=== PATIENT | male | born 1980 | race Caucasian/White ===

== ENCOUNTER 2021-09-06 09:02 | Emergency (ER) | payer SELFPAY ==
[2021-09-06 09:08] VITALS: BP 201/102; PULSE 86; RESP 18; TEMP 36; O2SAT 99
--- NOTE | 2021-09-06 09:39 | PC.NURSE ---
Patient reported to this nurse he wished to leave at this time. patient alert and oriented. Ambulated self from ED. Nothing further to report.
== END 2021-09-06 09:39 | disposition left against medical advice (07) ==
DX: R10.30 Lower abdominal pain, unspecified (principal)
CPT/HCPCS: 99199

== ENCOUNTER 2022-07-14 09:34 | Observation (INO) | payer BC, SELFPAY ==
[2022-07-14] VITALS (16 sets, daily range): BP systolic 153–231; BP diastolic 81–121; PULSE 74–114; RESP 12–22; TEMP 36.1–37.1; O2SAT 97–100; BMI 34.2
--- NOTE | 2022-07-14 | ECG_ITS ---
Measurements Intervals [place] Rate: 65 P: 48 ID: [id number] QRS: -15 QRSD: 110 T: 170 QT: 428 QTc: 445 Interpretive Statements SINUS RHYTHM LEFT VENTRICULAR HYPERTROPHY AND ST-T CHANGE BASELINE ARTIFACT- I, II, III, AVR, AVL BORDERLINE ECG COMPARED TO ECG 07/14/2022 09:44:43 NO SIGNIFICANT CHANGES Electronically Signed On 07-18-2022 8:22:13 CDT by Enrique Dejesus D.O.
--- NOTE | ~2022-07-14 | US_ITS ---
EXAMINATION: US carotid duplex BI DATE: 07/14/2022 16:03 INDICATION: Syncope. TECHNIQUE: Grayscale, color Doppler, and pulsed Doppler images of the cervical carotid arteries were obtained. The degree of vessel stenosis is placed in one of the following categories: normal, <50%, 5 0-69%, >=70% but less than near-occlusion, near-occlusion, or total occlusion. Note that percent sten osis relative to normal distal artery lumen diameter is indirectly measured from velocity measurement s as described by Shankar, et al. Radiology 2003; 229:340-346. COMPARISON: None. FINDINGS: RIGHT: The right common carotid artery (CCA) peak systolic velocity (PSV) is 93 cm/s. The right internal car otid artery (ICA) PSV is 67 cm/s. The right ICA end-diastolic velocity (EDV) is 22 cm/s. The right IC A/CCA PSV ratio is 0.7. Grayscale and color Doppler images yield an estimate of 0% diameter reduction from plaque in the ICA. There is antegrade flow in the right vertebral artery. LEFT: The left CCA PSV is 85 cm/s. The left ICA PSV is 78 cm/s. The left ICA EDV is 24 cm/s. The left ICA/C CA PSV ratio is 0.9. Grayscale and color Doppler images yield an estimate of 0% diameter reduction fr om plaque in the ICA. There is antegrade flow in the left vertebral artery. IMPRESSION: 1. Normal internal carotid arteries. Reviewed, dictated and finalized at location A.
--- NOTE | ~2022-07-14 | CT_ITS ---
EXAMINATION: CT brain wo con DATE: 07/14/2022 10:50 INDICATION: Hypertension. Headaches. TECHNIQUE: Computed tomography (CT) of the head was performed without intravenous contrast. The dose- length product was 605.33 mGy-cm. COMPARISON: None FINDINGS: EXAMINATION: CT BRAIN W/O DATE: 07/14/2022 10:50 INDICATION: Hypertensive crisis. Headaches. TECHNIQUE: Computed tomography (CT) of the head was performed without intravenous contrast. The dose- length product was 605.33 mGy-cm. Automated exposure control and iterative reconstruction technique w ere employed. COMPARISON: No prior studies for comparison. FINDINGS: Normal brain parenchymal volume for age. Normal ramirez-white differentiation. No acute intrac ranial hemorrhage, infarction, mass or mass effect. No ventriculomegaly or midline shift. Midline sagittal images demonstrate a normal corpus callosum, c raniovertebral junction and sella turcica. Basilar cisterns are patent. Paranasal sinuses and mastoids are pneumatized. No depressed skull fractures. IMPRESSION: 1. No acute intracranial abnormality. IMPRESSION: 1. Reviewed, dictated and finalized at location B. IMPRESSION: 1. No acute intracranial abnormality. IMPRESSION: 1.
--- NOTE | ~2022-07-14 | XR_ITS ---
EXAMINATION: XR chest 2V DATE: 07/14/2022 10:32 INDICATION: Hypertension TECHNIQUE: PA and lateral views of the chest are obtained. COMPARISON: None available FINDINGS: The lungs are free of acute opacities. No pleural effusion or pneumothorax. The cardiomedia stinal silhouette is normal. There is mild thoracic spondylosis. IMPRESSION: 1. No acute cardiopulmonary abnormality. Reviewed, dictated and finalized at location A.
--- NOTE | 2022-07-14 09:39 | ECG_ITS ---
Measurements Intervals [place] Rate: 70 P: 48 UT: 177 QRS: -16 QRSD: 105 T: 154 QT: 403 QTc: 437 Interpretive Statements SINUS RHYTHM LEFT VENTRICULAR HYPERTROPHY AND ST-T CHANGE, CONSIDER MYOCARDIAL ISCHEMIA ABNORMAL ECG NO PREVIOUS ECG AVAILABLE FOR COMPARISON Electronically Signed On 07-14-2022 16:45:01 CDT by Mac Hay M.D.
[2022-07-14 09:57] LABS: Basophils Absolute Auto 0.1 K/mm3 (0.0-0.1); Basophils Percent Auto 0.9 % (0.2-1.2); Eosinophils Absolute Auto 0.3 K/mm3 (0-0.3); Eosinophils Percent Auto 3.7 % (0-4.4); Hematocrit 41.8 % (42.0-52.0); Hemoglobin 13.3 g/dL (14.0-18.0); Immature Granulocyte Absolute 0.02 K/mm3 (0.00-0.031); Immature Granulocyte Percent A 0.3 % (0-0.5); Lymphocytes Percent Auto 17.6 % (18.3-44.2); Mean Corpuscular HGB Conc 31.8 g/dl (32-36); Mean Corpuscular Hemoglobin 26.2 pg (26-34); Mean Corpuscular Volume 82.3 fl (80-100); Mean Platelet Volume 11.9 fl (7.4-10.4); Monocytes Absolute Auto 0.6 K/mm3 (0.1-0.6); Monocytes Percent Auto 8.1 % (2.6-8.5); Neutrophils Absolute Auto 5.1 K/mm3 (1.3-6.7); Neutrophils Percent Auto 69.4 % (45.5-73.1); Platelet Count Result 250 k/mm3 (150-375); Red Blood Count 5.08 M/mm3 (4.6-6.20); Red Cell Distribution Width 13.8 % (11.5-14.5); White Blood Count 7.4 K/mm3 (4.5-10.0)
[2022-07-14 10:06] LABS: Alanine Aminotransferase 19 U/L (6-50); Albumin Level 4.9 g/dL (3.5-5.1); Alkaline Phosphatase 101 U/L (38-126); Anion Gap 14 mmol/L (8-16); Aspartate Amino Transferase 27 U/L (17-59); Bilirubin,Total 0.5 mg/dL (0.2-1.3); Blood Urea Nitrogen 17 mg/dL (9-20); Calcium 8.8 mg/dL (8.4-10.2); Carbon Dioxide 28 mmol/L (22-30); Chloride 100 mmol/L (98-107); Estimated CRCL calculation 78 ml/min; Estimated Glomerular Filt Rate > 60; Glucose 110 mg/dL (65-110); Lipase 75 U/L (23-300); Potassium 3.2 mmol/L (3.4-5.0); Sodium 142 mmol/L (137-145)
[2022-07-14 10:11] LABS: INR 0.9; Prothrombin Time 12.2 Seconds (11.1-14.7)
[2022-07-14 10:12] LABS: Partial Thromboplastin Time 36.9 SECONDS (22.3-36.8)
[2022-07-14 10:26] LABS: Troponin I 0.042 ng/mL (0.000-0.034)
[2022-07-14] MEDS: hydrALAZINE HCL 20 MG/ML VIAL IV PUSH (10:38)
--- NOTE | 2022-07-14 10:48 | ED.RECABL ---
HPI - Recheck/Abnormal Lab/Rx General Chief Complaint: Recheck/Abnormal Lab/Rx Stated Complaint: abnormal EKG Time Seen by Provider: 07/14/22 10:23 History of Present Illness HPI narrative: 42-year-old male with a history of hypertension presents emergency room for evaluation of elevated blood pressures. Patient states that he was once being managed with lisinopril hydrochlorothiazide for his hypertension. Patient states that he moved, and did not seek medical care from a primary care physician for quite some time. States that he went to the dentist for routine cleaning last week, was found to have significantly elevated blood pressure. States that he establish care with a PCP today and was told to come directly to the emergency room for blood pressures of 230/120. Patient denies any headache, chest pain, shortness of breath, visual changes or nocturia. 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 Related Data Allergies Allergy/AdvReac Type Severity Reaction Status Date / Time No Known Allergies Allergy Unverified 07/14/22 08:18 Review of Systems Review of Systems: CONSTITUTIONAL: Denies fever, chills, or sweats. EYES: Denies visual changes, redness, or discharge. ENT: Denies rhinorrhea, congestion, sore throat, or otalgia. CARDIOVASCULAR: Denies chest pain, palpitations, or edema. RESPIRATORY: Denies cough or dyspnea. GASTROINTESTINAL: Denies abdominal pain, nausea, vomiting, or diarrhea. GENITOURINARY: Denies dysuria or hematuria. SKIN: Denies rash or itching. MUSCULOSKELETAL: Denies back pain, joint pain, or myalgia. NEUROLOGIC: Denies headache, numbness, dizziness, or weakness. PSYCHIATRIC: Denies anxiety or depression. [facility] Past Medical History Medical History Xsitk-Lgbmtslgq-Grtjh (WPW) syndrome (~1991) Family History Family History Father Cancer Hypertension Mother Cancer Sibling Depression Anxiety Grandparent Cerebrovascular accident Social History Social History Smoking status: Never smoker Alcohol intake: current Substance use type: does not use Exam Narrative: GENERAL: Well-appearing, well-nourished, no physical limitations, and in no acute distress. HEAD: Normocephalic, atraumatic. EYES: Conjunctivae normal, PERRLA and EOMI. NECK: Supple. No carotid bruits or JVD CHEST: Clear to auscultation. No respiratory distress. No wheezes rales or rhonchi. HEART: Regular rate and rhythm. No murmur heard. Normal peripheral pulses. ABDOMEN: Soft, nontender, nondistended, normal active bowel sounds. BACK: No CVA tenderness; No cervical/thoracic/lumbar tenderness, step-offs, bony abnormality; FROM EXTREMITIES: Normal range of motion. No edema. No clubbing or cyanosis SKIN: Warm, dry, no rash. No noted wounds NEURO: No focal deficits. Alert and oriented x3. MAEW. CN's II-XI intact bilaterally, normal gait PSYCH: Cooperative. Normal mood and affect. Course Vital Signs Vital signs: Vital Signs Temperature 36.6 C 07/14/22 09:41 Pulse Rate 75 07/14/22 09:41 Respiratory Rate 12 07/14/22 09:41 Blood Pressure 231/121 H 07/14/22 09:41 Pulse Oximetry 100 07/14/22 09:41 Oxygen Delivery Room Air 07/14/22 09:41 Temperature 36.6 C 07/14/22 09:41 Pulse Rate 76 07/14/22 11:30 Respiratory Rate 18 07/14/22 11:30 Blood Pressure 159/81 H 07/14/22 11:30 Pulse Oximetry 97 07/14/22 11:30 Oxygen Delivery Room Air 07/14/22 09:41 MDM - Recheck/Abnormal Lab/Rx MDM Narrative Medical decision making narrative: Discussed case with Dr. Mahajan. He is requesting patient be admitted to IMU status. 1115: Patient overheard saying that he felt like he was going to pass out. I was at the bedside when patient had a syncopal episode that lasted approximately 2 seconds. Patient br
--- NOTE | 2022-07-14 11:40 | PC.NURSE ---
pt's heart rate decreased into the 30's. when walking into room pt had had a syncopal episode lasting a few seconds. when pt regained consciousness he stated he felt dizzy right before he passed out. pt denies any chest pain or shortness of breath. pt's HR increased back into the 60's. repeat EKG was obtained and shown to Dr. Jacob.
[2022-07-14 11:56] LABS: SARS-CoV-2 RNA PCR Negative
--- NOTE | 2022-07-14 12:43 | ADMGEN ---
This patient, Brijesh Morejon, was admitted to IMU Room 232-01. Patient/family oriented to hospital policies and general routines including ID bracelet, bed and alarms, visiting hours, pain management, procedures, bathroom and other care routines, personal items, smoking policy, room service/diet, and visiting hours. Information on how to activate the Rapid Response Team has been discussed. Patient/Family are encouraged to report perceived risks to care and to ask questions if they do not understand what they are told or what they should do.
--- NOTE | 2022-07-14 14:30 | PM.IMHP ---
H&P: HPI History of Present Illness Date/Time: 07/14/22 14:30 Chief Complaint: Hypertension and abnormal EKG Narrative: This is a 42-year-old male patient who has a history Cvoia-Jfrdhyglw-Elkwf with in the bleach in the past. He also has a history of hypertension that was once managed with lisinopril and hydrochlorothiazide however the patient had moved and has not taken his blood pressure medicine in quite some time approximately 1-2 years. The patient went to the dentist for routine cleaning any was found to be hypertensive there. The dentist told him to come directly to the emergency room where his blood pressure was found to be 174/112 and came up to 231/121. His blood pressure is now come down to 153/83. The patient was given hydralazine. It was reported that the patient had a syncopal episode and has heart rate came down in the 20s. Patient was then given atropine. His troponin was found to be 0.042 most likely from hypertension. The patient has no complaints of any chest pain. His negative for COVID. His EKG was read as sinus rhythm left ventricular hypertrophy and ST changes. The patient had been prescribed aspirin losartan and hydrochlorothiazide by his primary care doctor. The patient had CT in the emergency room that shows no acute intracranial abnormality. Chest x-ray was read as no acute cardiopulmonary abnormality. The patient had no complaints of being short of breath her having any headache, or dizziness. Initially the patient was going to be admitted to inpatient status and was changed to observation status on the date of service of 07/14/2022. Review of Systems Review of Systems: See HPI All systems reviewed & are unremarkable except as noted in HPI and below Constitutional: Constitutional: Reports as per HPI and Reports no additional constitutional complaints Eyes: Eyes: Reports as per HPI and Reports no additional eye complaints ENT: Reports system reviewed and no additional complaints, except as documented and Reports Normal hearing present Cardiovascular: Cardiovascular: Reports no additional cardiovascular complaints Respiratory: Respiratory: Reports no additional respiratory complaints and Reports no additional respiratory complaints Gastrointestinal: Gastrointestinal: Reports as per HPI and Reports no additional gastrointestinal complaints Musculoskeletal: Musculoskeletal: Reports no additional musculoskeletal complaints Integumentary/Breasts: Skin/Breast: Reports system reviewed and no additional complaints, except as docu and Reports as per HPI Neurologic: Reports system reviewed and no additional complaints, except as documented, Reports as per HPI and Reports Normal hearing present Psychiatric: Psychiatric: Reports no additional psychiatric complaints and Reports as per HPI Endocrine: Endocrine: Reports no additional endocrine complaints Hematologic/Lymphatic: Hematologic/Lymphatic: Reports no additional hematologic/lymphatic complaints Allergic/Immunologic: Allergic/Immunologic: Reports no additional allergic/immunologic complaints PMFSH Past Medical History Medical History Hypertension Ungss-Oonggatsq-Oqkny (WPW) syndrome (~1991) Surgical History Surgical History S/P ablation operation for arrhythmia [place] teeth extracted Family History Family History Father Cancer Hypertension Mother Cancer Sibling Depression Anxiety Grandparent Cerebrovascular accident Social History Social History (Updated 07/14/22 @ 14:42 by Roopa Quiles NP) Social History: 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 Does not use any alcohol marijuana or illicit drugs. He has 3
--- NOTE | 2022-07-14 15:16 | PM.CNCAR ---
Assessment and Plan Assessment and plan (1) Syncope: Code(s): R55 - Syncope and collapse Status: Acute Assessment and Plan: At this time we do not have any evidence of significant arrhythmias. Continue to monitor patient on telemetry. Could have possibly been a vasovagal episode. Patient did have a significant blood pressure drop with hydralazine from 230 systolic to 150 systolics, this could possibly attributed to episode. An echocardiogram has already been ordered, we will follow-up on the results of this (2) Hypertensive crisis: Code(s): I16.9 - Hypertensive crisis, unspecified Status: Acute Assessment and Plan: Blood pressure control as per hospitalist (3) Elevated troponin: Code(s): R77.8 - Other specified abnormalities of plasma proteins Status: Acute Assessment and Plan: Troponin is mildly elevated at 0.042, ECG with sinus rhythm with LVH with secondary repolarization changes. No ischemic changes. Suspect secondary to hypertensive crisis. History of Present Illness History of Present Illness Consult date/time: 07/14/22 15:16 Requesting physician: Mp Haywood APRN Consult reason: Other (syncope) Reason For Visit: HTN Crisis Narrative: Patient is a 42-year-old male with a history of WPW status post ablation 1991 and hypertension not on home medications who presented to the emergency department with hypertensive crisis. Patient states that he was at his dentist's office on Sunday and they had noticed elevated blood pressures recommended follow-up with his primary care. Patient was seen at his primary care office today and they had noticed blood pressures almost in the 200 systolics, and therefore referred patient to the emergency department for further management. While in the ED, patient had a blood pressure of 231/121, and then he was given hydralazine which dropped his blood pressure to 159. While in the ED patient had a syncopal episode. Patient states that he felt chills and then got lightheaded, and then passed out briefly. Per ED report he was bradycardic, however we do not have any of the telemetry strips. Upon regaining consciousness, patient states he felt a little groggy but otherwise is okay. EKG shows sinus rhythm with LVH with secondary repolarization changes. No acute ischemic changes. At this time have no evidence of significant arrhythmias. WPW ablation was done in 1991. Patient states that he had chest pain and episode of syncope prior to ablation, however he has not had any issues with that since, and he has not passed out until today. Patient denies any chest pain today. Review of Systems Review of Systems: 12-point ROS obtained. 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 Does not use any alcohol marijuana or illicit drugs. He has 3 children of his own. Code status full code Smoking status: Never smoker Alcohol intake: never Substance use: never Substance use type: does not use Has the Lack of Transportation Kept You From Medical Appointments or From Getting Medications?: No Within the Past 12 Months, Were You Worried Whether Your Food Would Run Ou
[2022-07-14 16:21] LABS: Troponin I 0.032 ng/mL (0.000-0.034)
[2022-07-14] MEDS: hydroCHLOROthiazide 12.5 MG CAPSULE PO (17:20)
[2022-07-14] MEDS: POTASSIUM CHLORIDE 20 MEQ TABLET PO (17:20)
[2022-07-14] MEDS: LOSARTAN POTASSIUM 50 MG TABLET PO (17:21)
[2022-07-14 18:17] LABS: Troponin I 0.033 ng/mL (0.000-0.034)
[2022-07-14] MEDS: hydrALAZINE HCL 20 MG/ML VIAL 10 MG IV PUSH (18:52)
[2022-07-15] VITALS (13 sets, daily range): BP systolic 170–217; BP diastolic 78–103; PULSE 88–108; RESP 16–18; TEMP 36.4–36.9; O2SAT 98–100
--- NOTE | 2022-07-15 | ECHO_ITS ---
Patient Info Name: Brijesh Morejon Age: 42 years : 1980 Gender: Male Ht: 68 in Wt: 222 lbs BSA: 2.23 m2 HR: 99 bpm BP: 186 / 78 mmHg Heart Rhythm: Sinus Rhythm Technical Quality: Fair Exam Date: 07/15/2022 10:36 AM Exam Location: [facility] Pulmonary Patient Status: Inpatient Admit Date: 07/14/2022 Staff Ordering Physician: Roopa Quiles NP Creative Services Producer: Lydia Armendariz RDCS Attending Provider: Joselin Mahajan MD Referring Physician: Kb DAO; Exam Type: CA echo dop color flow w con Study Info Indications I11.9 - Hypertensive heart disease without heart failure Complete two-dimensional, color flow and Doppler transthoracic echocardiogram is performed with contrast to opacify the left ventricle and to improve the deliniation of the left ventricle endocardial borders. Contrast/Agitated Saline Contrast/Ag. Saline: Definity Amount: 4.00 ml Administered By: Lydia Armendariz [facility] Summary 1. Left ventricular systolic function is normal, estimated at 60-65%. 2. There is moderately increased left ventricular wall thickness. 3. The left ventricular diastolic function is grade I diastolic dysfunction. 4. Right ventricular systolic function is normal. 5. There is mild tricuspid valve regurgitation. Left Ventricle Left ventricular chamber dimension is normal. Left ventricular systolic function is normal, estimated at 60-65%. There is moderately increased left ventricular wall thickness. The left ventricular diastolic function is grade I diastolic dysfunction. Right Ventricle Right ventricular chamber dimension is normal. Right ventricular systolic function is normal. Left Atria Left atrial chamber dimension is normal. Right Atria Right atrial chamber dimension is normal. Atrial Septum Intact interatrial septum visualized by color flow imaging. Aortic Valve The aortic valve is not well visualized. There is no aortic valve stenosis. There is no aortic valve regurgitation. Pulmonic Valve The pulmonic valve is not well visualized. Mitral Valve The mitral valve has normal leaflets. There is no mitral valve stenosis. There is no mitral valve regurgitation. Tricuspid Valve The tricuspid valve leaflets are normal. There is mild tricuspid valve regurgitation. Pericardium/Pleural There is no pericardial effusion. Inferior Vena Cava Normal inferior vena cava with >50% collapse upon inspiration consistent with normal right atrial pressure.. Left Ventricular Outflow Tract Name Value Normal LVOT 2D LVOT Diameter 2.35 cm LVOT Doppler LVOT Peak Gradient 6 mmHg LVOT Mean Gradient 3 mmHg LVOT VTI 21.30 cm LVOT VTI/AV VTI Ratio 0.57 LVOT Stroke Volume 92.41 ml LVOT CO 9.25 l/min LVOT CI 4.32 L/min/m2 Pulmonic Valve Name
[2022-07-15] MEDS: hydrALAZINE HCL 20 MG/ML VIAL 10 MG IV PUSH (05:03)
[2022-07-15 05:04] LABS: Hematocrit 41.1 % (42.0-52.0); Hemoglobin 13.5 g/dL (14.0-18.0); Mean Corpuscular HGB Conc 32.8 g/dl (32-36); Mean Corpuscular Volume 79.2 fl (80-100); Mean Platelet Volume 12.7 fl (7.4-10.4); Platelet Count Result 175 k/mm3 (150-375); Red Blood Count 5.19 M/mm3 (4.6-6.20); Red Cell Distribution Width 13.9 % (11.5-14.5); White Blood Count 17.2 K/mm3 (4.5-10.0)
[2022-07-15 05:10] LABS: Alanine Aminotransferase 19 U/L (6-50); Albumin Level 4.6 g/dL (3.5-5.1); Alkaline Phosphatase 103 U/L (38-126); Anion Gap 14 mmol/L (8-16); Aspartate Amino Transferase 34 U/L (17-59); Bilirubin,Total 0.7 mg/dL (0.2-1.3); Blood Urea Nitrogen 18 mg/dL (9-20); Calcium 8.9 mg/dL (8.4-10.2); Carbon Dioxide 29 mmol/L (22-30); Chloride 98 mmol/L (98-107); Estimated CRCL calculation 66 ml/min; Estimated Glomerular Filt Rate 52; Glucose 118 mg/dL (65-110); Magnesium 2.2 mg/dL (1.6-2.3); Potassium 3.6 mmol/L (3.4-5.0); Sodium 141 mmol/L (137-145)
[2022-07-15] MEDS: ASPIRIN 81 MG ENTERIC TABLET PO (09:05)
[2022-07-15] MEDS: hydroCHLOROthiazide 12.5 MG CAPSULE PO (09:05)
[2022-07-15] MEDS: ENOXAPARIN 40 MG/0.4 ML SYRINGE SUB-Q (09:06)
[2022-07-15] MEDS: LOSARTAN POTASSIUM 50 MG TABLET PO (09:06)
--- NOTE | 2022-07-15 09:06 | PM.IMPN ---
Progress Note: A&P Assessment and Plan (1) Syncope: Code(s): R55 - Syncope and collapse Status: Acute Assessment and Plan: -this apparently happened in the emergency room. Is reported that his heart rate dropped a 20 after he received hydralazine however the side effects of hydralazine is usually tachycardia. Perhaps this was a vagal response. The patient stated that he has not had a syncopal event in the past. --echo has been ordered and will check his carotids. (2) Hypertensive crisis: Code(s): I16.9 - Hypertensive crisis, unspecified Status: Acute Assessment and Plan: -the patient has p.r.n. hydralazine and he had a prescription for losartan with hydrochlorothiazide that his primary care doctor gave him after discussing this with the patient he is agreeable to take these medications. (3) Elevated troponin: Code(s): R77.8 - Other specified abnormalities of plasma proteins Status: Acute Assessment and Plan: -could be related to his hypertensive crisis. Continue to trend. The patient has no complaints of any chest pain or chest pressure. Plan The patient's potassium slightly low so I did replace that today. However the losartan can cause hyperkalemia. The patient will need to have his BMP checked in about 1 week. Subjective Date/time seen: 07/15/22 09:06 Objective Data Vital Signs Vital Signs: Vital Signs - 24 hr 07/14/22 09:41 07/14/22 10:24 07/14/22 10:25 Temperature 97.8 F Pulse Rate 75 79 Respiratory Rate 12 18 18 Blood Pressure 231/121 H 217/114 H Pulse Oximetry 100 99 99 Oxygen Delivery Room Air 07/14/22 11:30 07/14/22 12:10 07/14/22 16:00 Temperature 97 F L Pulse Rate 76 74 78 Respiratory Rate 18 22 H 14 Blood Pressure 159/81 H 153/83 H 197/100 H Pulse Oximetry 97 100 100 Oxygen Delivery 07/14/22 16:00 07/14/22 17:10 07/14/22 17:11 Temperature Pulse Rate Respiratory Rate Blood Pressure 197/100 H 198/97 H 184/104 H Pulse Oximetry Oxygen Delivery 07/14/22 14:00 07/14/22 16:00 07/14/22 18:00 Temperature Pulse Rate 92 84 95 Respiratory Rate Blood Pressure Pulse Oximetry Oxygen Delivery 07/14/22 18:30 07/14/22 20:00 07/14/22 20:00 Temperature 98.7 F Pulse Rate 107 H Respiratory Rate 18 Blood Pressure 213/97 H 200/89 H 200/89 H Pulse Oximetry 99 Oxygen Delivery 07/14/22 20:37 07/14/22 20:37 07/14/22 20:00 Temperature Pulse Rate 107 H Respiratory Rate 18 Blood Pressure 220/112 H 159/103 H Pulse Oximetry 99 Oxygen Delivery Room Air 07/14/22 20:00 07/14/22 22:00 07/14/22 23:56 Temperature 97.6 F Pulse Rate 106 H 109 H 114 H Respiratory Rate 16 Blood Pressure 175/107 H Pulse Oximetry 98 Oxygen Delivery 07/14/22 23:41 07/15/22 00:00 07/15/22 01:46 Temperature Pulse Rate 114 H 108 H 97 Respiratory Rate 16 Blood Pressure Pulse Oximetry 98 Oxygen Delivery Room Air 07/15/22 04:00 07/15/22 04:00 07/15/22 03:59 Temperature 97.6 F Pulse Rate 90 88 88 Respiratory Rate 18 18 Blood Pressure 186/78 H Pulse Oximetry 98 98 Oxygen Delivery Room Air 07/15/22 05:33 07/15/22 08:00 07/15/22 08:00 Temperature 97.7 F Pulse Rate 98 96 Respiratory Rate 16 Blood Pressure 206/96 H 206/96 H Pulse Oximetry 100 Oxygen Delivery 07/15/22 08:34 07/15/22 08:35 07/15/22 08:35 Temperature Pulse Rate Respiratory Rate Blood Pressure 195/95 H 202/103 H 217/100 H Pulse Oximetry Oxygen Delivery Intake/Output Intake/Output: Intake & Output 07/12/22 07/13/22 07/14/22 07/15/22 23:59 23:59 23:59 23:59 Intake Total 240 450 Output Total 4080 740 Balance -9762 -290 Meds/Results Medications: Active Medications Generic Name Dose Route Start Last Admin Trade Name Jassonq PRN Reason Stop Dose Admin Aspirin 81 mg 07/15/22 09:00 Aspirin 81 Mg Enteric Tablet PO D
[2022-07-15] MEDS: PERFLUTREN LIPID MICROSPHERES 1.5 ML VIAL DILUTED TO 10 ML TOTAL VOLUME IV PUSH (11:00)
[2022-07-15] MEDS: cloNIDine HCL 0.1 MG TABLET PO (11:11)
--- NOTE | 2022-07-15 11:21 | PM.PNCARD ---
Progress Note: A&P Assessment and Plan (1) Syncope: Code(s): R55 - Syncope and collapse Status: Acute Assessment and Plan: At this time we do not have any evidence of significant arrhythmias.? Could have possibly been a vasovagal episode.? Patient did have a significant blood pressure drop with hydralazine from 230 systolic to 150 systolics, this could possibly attributed to episode. An echocardiogram has already been ordered, we will follow-up on the results of this (2) Hypertension: Code(s): I10 - Essential (primary) hypertension Status: Acute Assessment and Plan: Blood pressure control as per hospitalist (3) Elevated troponin: Code(s): R77.8 - Other specified abnormalities of plasma proteins Status: Acute Assessment and Plan: Troponin is mildly elevated at 0.042 with repeat levels negative, ECG with sinus rhythm with LVH with secondary repolarization changes.? No ischemic changes.? Suspect secondary to hypertensive crisis. Time Spent With Patient Time with patient: 15 - 25 minutes Subjective Date/time seen: 07/15/22 11:21 Interval history: Reason for visit: Syncope No acute events overnight. TTE to be done this AM. Tele with occasional sinus tach overnight but no arrhythmias, bradycardia or other significant findings. Review of Systems Review of Systems: 8-point ROS obtained. Negative, unless stated in HPI. Exam Const: General: comfortable and no acute distress HENMT: Mouth: Yes moist mucous membranes Eyes: General: appearance normal, both eyes and all related structures Neck: Neck: supple and no JVD Resp: Effort & Inspection: normal respiratory effort Cardio: Rate: regular rate Rhythm: regular rhythm Heart sounds: no murmurs GI: GI Palp: Yes Soft to palpation and No Tenderness to palpation present (GI) Skin: General skin exam: normal color Neuro: Speech: normal speech Extrem: General: no edema Psych: Mental Status: mental status grossly normal Objective Data Vital Signs Vital Signs: Vital Signs - 24 hr 07/14/22 11:30 07/14/22 12:10 07/14/22 16:00 Temperature 36.1 C L Pulse Rate 76 74 78 Respiratory Rate 18 22 H 14 Blood Pressure 159/81 H 153/83 H 197/100 H Pulse Oximetry 97 100 100 Oxygen Delivery 07/14/22 16:00 07/14/22 17:10 07/14/22 17:11 Temperature Pulse Rate Respiratory Rate Blood Pressure 197/100 H 198/97 H 184/104 H Pulse Oximetry Oxygen Delivery 07/14/22 14:00 07/14/22 16:00 07/14/22 18:00 Temperature Pulse Rate 92 84 95 Respiratory Rate Blood Pressure Pulse Oximetry Oxygen Delivery 07/14/22 18:30 07/14/22 20:00 07/14/22 20:00 Temperature 37.1 C Pulse Rate 107 H Respiratory Rate 18 Blood Pressure 213/97 H 200/89 H 200/89 H Pulse Oximetry 99 Oxygen Delivery 07/14/22 20:37 07/14/22 20:37 07/14/22 20:00 Temperature Pulse Rate 107 H Respiratory Rate 18 Blood Pressure 220/112 H 159/103 H Pulse Oximetry 99 Oxygen Delivery Room Air 07/14/22 20:00 07/14/22 22:00 07/14/22 23:56 Temperature 36.4 C Pulse Rate 106 H 109 H 114 H Respiratory Rate 16 Blood Pressure 175/107 H Pulse Oximetry 98 Oxygen Delivery 07/14/22 23:41 07/15/22 00:00 07/15/22 01:46 Temperature Pulse Rate 114 H 108 H 97 Respiratory Rate 16 Blood Pressure Pulse Oximetry 98 Oxygen Delivery Room Air 07/15/22 04:00 07/15/22 04:00 07/15/22 03:59 Temperature 36.4 C Pulse Rate 90 88 88 Respiratory Rate 18 18 Blood Pressure 186/78 H Pulse Oximetry 98 98 Oxygen Delivery Room Air 07/15/22 05:33 07/15/22 08:00 07/15/22 08:00 Temperature 36.5 C Pulse Rate 98 96 Respiratory Rate 16 Blood Pressure 206/96 H 206/96 H Pulse Oximetry 100 Oxygen Delivery 07/15/22 08:34 07/15/22 08:35 07/15/22 08:35 Temperature Pulse Rate Respiratory Rate Blood Pressure 195/95 H 202/103 H 217/100 H Pulse Oximetr
--- NOTE | 2022-07-15 13:52 | PM.DS ---
DS: Admitting Diagnosis Discharge Date July 15, 2022 Admitting Diagnosis Elevated blood pressure DS: Discharge Diagnosis Discharge Diagnosis (1) Syncope: Code(s): R55 - Syncope and collapse Status: Acute Assessment and Plan: -this apparently happened in the emergency room. Is reported that his heart rate dropped a 20 after he received hydralazine however the side effects of hydralazine is usually tachycardia. Perhaps this was a vagal response. The patient stated that he has not had a syncopal event in the past. --echo has been ordered and will check his carotids. (2) Hypertensive crisis: Code(s): I16.9 - Hypertensive crisis, unspecified Status: Acute Assessment and Plan: -the patient has p.r.n. hydralazine and he had a prescription for losartan with hydrochlorothiazide that his primary care doctor gave him after discussing this with the patient he is agreeable to take these medications. (3) Elevated troponin: Code(s): R77.8 - Other specified abnormalities of plasma proteins Status: Acute Assessment and Plan: -could be related to his hypertensive crisis. Continue to trend. The patient has no complaints of any chest pain or chest pressure. Plan The patient's potassium slightly low so I did replace that today. However the losartan can cause hyperkalemia. The patient will need to have his BMP checked in about 1 week. DS: Summary Hospital Course Hospital Course: 42-year-old male patient who has a history Kcghg-Aecdhrhlq-Blihs with in the bleach in the past.? He also has a history of hypertension that was once managed with lisinopril and hydrochlorothiazide however the patient had moved and has not taken his blood pressure medicine in quite some time approximately 1-2 years.? The patient went to the dentist for routine cleaning any was found to be hypertensive there.? The dentist told him to come directly to the emergency room where his blood pressure was found to be 174/112 and came up to 231/121.? His blood pressure is now come down to 153/83.? The patient was given hydralazine.? It was reported that the patient had a syncopal episode and has heart rate came down in the 20s.? Patient was then given atropine.? His troponin was found to be 0.042 most likely from hypertension.? The patient has no complaints of any chest pain.? His negative for COVID.? His EKG was read as sinus rhythm left ventricular hypertrophy and ST changes.? The patient had been prescribed aspirin losartan and hydrochlorothiazide by his primary care doctor.? The patient had CT in the emergency room that shows no acute intracranial abnormality.? Chest x-ray was read as no acute cardiopulmonary abnormality.? The patient had no complaints of being short of breath her having any headache, or dizziness. All symptoms resolved. Cardiology was consulted and ordered an echo. Echo showed an EF of 60-65% with grade 1 diastolic dysfunction, no significant valvular abnormalities and no pulmonary hypertension noted. Elevated troponin was thought to be secondary to hypertensive urgency. The patient was started on clonidine for better blood pressure control and discharged in good condition with close outpatient follow-up and management. Time Spent with Patient Time attestation: Total time spent providing and/or coordinating discharge services: DS: Data Data Completed and Pending Labs on day of discharge: Labs from last 24 hours 07/15/22 07/15/22 07/15/22 04:48 04:48 04:48 WBC RBC Hgb Hct MCV MCH MCHC RDW Plt Count MPV Sodium 141 Potassium 3.6 Chloride 98 Carbon Dioxide 29 Anion Gap 14 BUN 18 Creatinine 1.50 H Estim Creat Clear Calc 66 Estimated GFR 52 L Glucose 118 H Calcium 8.9 Magnesium 2.2 Total Bilirubin 0.7 AST 34 ALT 19 Alkaline Phosphatase 103 Troponin I Total Protein 8.0 Albumin 4.6 TSH (Reflex) 1.07
== END 2022-07-15 16:05 | disposition home or self-care (01) ==
LOC: ANHED 11:10 → ANHIMU 07-15 13:52
PROVIDERS: Emergency Medicine; Nurse Practitioner; Admitting Provider Family Medicine; Emergency Provider Nurse Practitioner Family; PCP Internal Medicine; Visit Provider Student in an Organized Health Care Education/Training Program
DX: I16.9 Hypertensive crisis, unspecified (principal); R55 Syncope and collapse; R77.8 Other specified abnormalities of plasma proteins; F10.90 Alcohol use, unspecified, uncomplicated; I45.6 Pre-excitation syndrome; I36.1 Nonrheumatic tricuspid (valve) insufficiency; Z20.822 Contact with and (suspected) exposure to COVID-19; R94.31 Abnormal electrocardiogram [ECG] [EKG]; I51.89 Other ill-defined heart diseases; Z87.898 Personal history of other specified conditions; Z79.82 Long term (current) use of aspirin; Z79.899 Other long term (current) drug therapy; Z82.49 Family history of ischemic heart disease and other diseases of the circulatory system
CPT/HCPCS: 36415; 70450; 71046; 80053; 82533; 83690; 83735; 84443; 84484; 85025; 85027; 85610; 85730; 93005; 93880; 96372; 96374; 96376; 99285; A9270; C8929; G0378; J0360; J0461; J1650; Q9957; U0003; U0005

== ENCOUNTER 2022-09-04 15:45 | Outpatient (CLI) | payer BC, SELFPAY ==
[2022-09-04 19:01] LABS: Alanine Aminotransferase 18 U/L (6-50); Albumin Level 4.5 g/dL (3.5-5.1); Alkaline Phosphatase 82 U/L (38-126); Anion Gap 6 mmol/L (8-16); Aspartate Amino Transferase 32 U/L (17-59); Bilirubin,Total 0.6 mg/dL (0.2-1.3); Blood Urea Nitrogen 18 mg/dL (9-20); Calcium 8.7 mg/dL (8.4-10.2); Carbon Dioxide 32 mmol/L (22-30); Chloride 99 mmol/L (98-107); Cholesterol 196 mg/dL (0-200); Estimated Glomerular Filt Rate > 60; Glucose 95 mg/dL (65-110); HDL Direct 39 mg/dL; Sodium 137 mmol/L (137-145); Triglycerides 100 mg/dL (<150)
[2022-09-04 19:09] LABS: Basophils Absolute Auto 0.1 K/mm3 (0.0-0.1); Basophils Percent Auto 1.1 % (0.2-1.2); Eosinophils Absolute Auto 0.2 K/mm3 (0-0.3); Eosinophils Percent Auto 2.6 % (0-4.4); Hemoglobin 12.5 g/dL (14.0-18.0); Immature Granulocyte Absolute 0.03 K/mm3 (0.00-0.031); Immature Granulocyte Percent A 0.4 % (0-0.5); Lymphocytes Absolute Auto 1.38 K/mm3 (0.9-3.2); Lymphocytes Percent Auto 16.3 % (18.3-44.2); Mean Corpuscular HGB Conc 32.1 g/dl (32-36); Mean Corpuscular Hemoglobin 26.5 pg (26-34); Mean Corpuscular Volume 82.6 fl (80-100); Monocytes Absolute Auto 0.7 K/mm3 (0.1-0.6); Monocytes Percent Auto 8.4 % (2.6-8.5); Neutrophils Absolute Auto 6.1 K/mm3 (1.3-6.7); Neutrophils Percent Auto 71.2 % (45.5-73.1); Platelet Count Result 219 k/mm3 (150-375); Red Blood Count 4.72 M/mm3 (4.6-6.20); Red Cell Distribution Width 14.1 % (11.5-14.5); White Blood Count 8.5 K/mm3 (4.5-10.0)
[2022-09-04 19:12] LABS: LDL Cholesterol Direct 108 mg/dL
[2022-09-04 20:13] LABS: Creatinine Urine 135.1 mg/dL
[2022-09-04 20:17] LABS: MALB Creatinine Ratio 65.6 mg/g (0-30); Microalbumin Urine Random 88.6 mg/L (0-16.7)
[2022-09-05 08:47] LABS: Hemoglobin A1C 5.8 % (<5.7)
== END 2022-09-04 15:46 | disposition home or self-care (01) ==
LOC: ANHGOSHLAB 15:46
PROVIDERS: PCP Internal Medicine; Visit Provider Clinical Nurse Specialist
DX: R73.9 Hyperglycemia, unspecified (principal); I10 Essential (primary) hypertension
CPT/HCPCS: 36415; 80053; 80061; 82043; 83036; 83735; 84443; 85025

== ENCOUNTER 2022-10-13 15:11 | Outpatient (CLI) | payer BC, SELFPAY ==
[2022-10-13 19:52] LABS: Anion Gap 10 mmol/L (8-16); Blood Urea Nitrogen 13 mg/dL (9-20); Calcium 8.9 mg/dL (8.4-10.2); Carbon Dioxide 32 mmol/L (22-30); Chloride 97 mmol/L (98-107); Estimated Glomerular Filt Rate > 60; Glucose 83 mg/dL (65-110); Potassium 3.1 mmol/L (3.4-5.0); Sodium 139 mmol/L (137-145)
[2022-10-13 20:41] LABS: Hepatitis C Virus Antibody Negative (Negative)
[2022-10-16 22:50] LABS: Albumin 4.4 g/dL (3.8-4.8); Alpha 1 Globulin 0.3 g/dL (0.2-0.3); Alpha 2 Globulin 0.7 g/dL (0.5-0.9); Beta 1 Globulin 0.5 g/dL (0.4-0.6); Gamma Globulin 1.5 g/dL (0.8-1.7); Protein, Total 8.1 g/dL (6.1-8.1)
[2022-10-19 06:42] LABS: Creatinine, Random Urine 43 mg/dL (20-320); Total Protein/Creatinine Ratio 163 mg/g creat (25-148)
== END 2022-10-13 15:12 | disposition home or self-care (01) ==
LOC: ANHGOSHLAB 15:13
PROVIDERS: PCP Internal Medicine; Visit Provider Clinical Nurse Specialist
DX: N17.9 Acute kidney failure, unspecified (principal); I10 Essential (primary) hypertension; I16.9 Hypertensive crisis, unspecified
CPT/HCPCS: 36415; 80048; 82570; 84155; 84156; 84165; 84166; 86803

== ENCOUNTER 2023-01-01 15:25 | Outpatient (CLI) | payer BC, SELFPAY ==
[2023-01-01 22:02] LABS: Albumin Level 4.9 g/dL (3.5-5.1); Anion Gap 9 mmol/L (8-16); Blood Urea Nitrogen 14 mg/dL (9-20); Calcium 9.4 mg/dL (8.4-10.2); Carbon Dioxide 28 mmol/L (22-30); Chloride 101 mmol/L (98-107); Estimated Glomerular Filt Rate > 60; Glucose 105 mg/dL (65-110); Phosphorus 3.1 mg/dL (2.5-4.5); Potassium 2.8 mmol/L (3.4-5.0); Sodium 138 mmol/L (137-145)
[2023-01-02 09:01] LABS: Magnesium 2.2 mg/dL (1.6-2.3)
== END 2023-01-01 15:26 | disposition home or self-care (01) ==
LOC: ANHGOSHLAB 15:26
PROVIDERS: PCP Internal Medicine; Visit Provider Internal Medicine Nephrology
DX: I10 Essential (primary) hypertension (principal); E87.6 Hypokalemia
CPT/HCPCS: 36415; 80069; 83735

== ENCOUNTER 2023-05-17 09:16 | Outpatient (CLI) | payer BC, SELFPAY ==
[2023-05-17 11:15] LABS: Anion Gap 5 mmol/L (8-16); Blood Urea Nitrogen 12 mg/dL (9-20); Calcium 8.8 mg/dL (8.4-10.2); Carbon Dioxide 31 mmol/L (22-30); Chloride 102 mmol/L (98-107); Estimated Glomerular Filt Rate > 60; Glucose 104 mg/dL (65-110); Potassium 3.7 mmol/L (3.4-5.0); Sodium 138 mmol/L (137-145)
[2023-05-17 11:33] LABS: Albumin Level 4.4 g/dL (3.5-5.1); Anion Gap 5 mmol/L (8-16); Blood Urea Nitrogen 13 mg/dL (9-20); Calcium 8.9 mg/dL (8.4-10.2); Carbon Dioxide 31 mmol/L (22-30); Chloride 103 mmol/L (98-107); Estimated Glomerular Filt Rate > 60; Glucose 104 mg/dL (65-110); Magnesium 2.2 mg/dL (1.6-2.3); Phosphorus 2.8 mg/dL (2.5-4.5); Potassium 3.8 mmol/L (3.4-5.0); Sodium 139 mmol/L (137-145)
== END 2023-05-17 09:17 | disposition home or self-care (01) ==
LOC: ANHGOSHLAB 09:18
PROVIDERS: Clinical Nurse Specialist; Visit Provider Internal Medicine Nephrology
DX: E87.6 Hypokalemia (principal); I10 Essential (primary) hypertension
CPT/HCPCS: 36415; 80048; 80069; 83735

== ENCOUNTER 2023-05-17 09:34 | Outpatient (CLI) | payer BC, SELFPAY ==
--- NOTE | ~2023-05-17 | US_ITS ---
EXAMINATION: US retroperitoneal duplex ltd DATE: 05/17/2023 09:57 INDICATION: Essential (primary) hypertension TECHNIQUE: Multiple grayscale, color Doppler, and pulsed Doppler images of the kidneys and renal conner vijay were obtained. COMPARISON: None. FINDINGS: The aorta peak systolic velocity is 144 cm/s. The right renal artery peak systolic velocity is 89 cm/ s in the proximal segment, 67 cm/s in the mid segment, and 72 cm/s in the distal segment. The left re nal artery peak systolic velocity is 128 cm/s in the proximal segment, 76 cm/s in the mid segment, an d 59 cm/s in the distal segment. IMPRESSION: 1. No Doppler evidence of renal artery stenosis. Reviewed, dictated and finalized at location A.
== END 2023-05-17 09:35 ==
LOC: GOSHIMG 09:35
PROVIDERS: PCP Internal Medicine; Visit Provider Clinical Nurse Specialist
DX: I10 Essential (primary) hypertension (principal)
CPT/HCPCS: 93976

== ENCOUNTER 2024-07-03 15:36 | Emergency (ER) | payer BC, SELFPAY ==
--- NOTE | 2024-07-03 15:43 | ED.URI ---
HPI - URI/Sore Throat General Chief Complaint: Upper Respiratory Infection Stated Complaint: Congestion/Fever Source: patient and RN notes reviewed Mode of arrival: ambulatory Limitations: no limitations History of Present Illness HPI Narrative: 44-year-old male with hx HTN presented for complaint of nasal congestion and fever. Onset 2 days. Also reports mild cough that has started today. States his temp was 101 yesterday. Has been taking multiple [id number] medicines for symptoms without relief. Denies shortness of breath, wheezing, nausea, vomiting, diarrhea or lethargy. Daughter had similar symptoms MD elicited complaint: cough Related Data Allergies Allergy/AdvReac Type Severity Reaction Status Date / Time No Known Allergies Allergy Verified 07/03/24 15:51 Review of Systems Review of Systems: CONSTITUTIONAL: Denies malaise, chills, sweats, reports fever EYES: Denies visual changes, redness, or discharge ENT: Reports rhinorrhea, congestion, denies otalgia, sore throat CARDIOVASCULAR: Denies chest pain, palpitations, edema RESPIRATORY: Reports cough, post nasal drainage. Denies dyspnea GASTROINTESTINAL: Denies abdominal pain, nausea, vomiting, diarrhea SKIN: Denies rash or itching MUSCULOSKELETAL: Denies myalgia NEUROLOGIC: Denies headache PMFSH Past Medical History Medical History Abnormal EKG ALEXANDER (acute kidney injury) Elevated troponin Hospital discharge follow-up Hyperglycemia Hypertension Hypertensive crisis Leukocytosis Syncope Higef-Iphbnvdew-Vjuuf (WPW) syndrome (~1991) Surgical History Surgical History S/P ablation operation for arrhythmia [place] teeth extracted Family History Family History Father Cancer Hypertension Mother Cancer Sibling Depression Anxiety Grandparent Cerebrovascular accident Social History Social History Social History: The patient is and 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 Does not use any alcohol marijuana or illicit drugs. He has 3 children of his own. Code status full code Smoking status: Never smoker Alcohol intake: never Substance use: never Substance use type: does not use Lack of Transportation: No Lack of Food: Never True Current Housing: I Have Housing Concerned About Future Housing: No Difficulty Paying Gas/Electric Bills: No Difficulty Paying for Meds: No Currently Unemployed: No Education: Master's Degree or Higher Difficulty w/ Childcare or Family Care: No Living arrangements: with family Gender identity (if verbalized by the patient): Male Spiritual care concerns: No Exam Narrative: GENERAL: well-appearing, nontoxic no acute distress. EYES: PERRLA, conjunctivae clear ENT: Mucous membranes moist. Nasal congestion. TM pearly ramirez with dull light reflex bilaterally; no tragal tenderness. Oropharynx not erythematous without lesions or exudate, no drooling, no hoarseness, no trismus, uvula midline. No tripod positioning, muffled voice, soft palate or pharyngeal wall bulging NECK: Supple. No lymphadenopathy CHEST: Clear to auscultation, breath sounds equal. No wheezing, rhonchi, rales, or stridor. No respiratory distress, speaks in full sentences. HEART: Regular rate and rhythm. No murmur heard. SKIN: Warm, dry, no rash. NEURO: Alert and oriented x3. PSYCH: Normal mood and affect Course Course Emergency Course: Patient is aware of diagnosis, understands and agrees to treatment plan. Anticipatory guidance given. Patient agrees to follow-up as directed and is aware of reasons to seek care at the emergency department. Portions of this
[2024-07-03 15:48] VITALS: BP 185/105; PULSE 92; RESP 16; TEMP 36.9; O2SAT 100
[2024-07-03 16:08] LABS: EDCOVIDSCREEN Negative (Negative)
[2024-07-03 16:09] LABS: EDINFLUASCREEN Negative (Negative); EDINFLUBSCREEN Negative (Negative)
== END 2024-07-03 16:20 | disposition home or self-care (01) ==
PROVIDERS: Emergency Provider Nurse Practitioner Family; PCP Internal Medicine
DX: J06.9 Acute upper respiratory infection, unspecified (principal); Z20.822 Contact with and (suspected) exposure to COVID-19; I10 Essential (primary) hypertension; I45.6 Pre-excitation syndrome
CPT/HCPCS: 87426; 87804; 99212; G0463

== ENCOUNTER 2024-09-02 08:56 | Outpatient (CLI) | payer BC, SELFPAY ==
[2024-09-02 13:47] LABS: Basophils Absolute Auto 0.1 K/mm3 (0.0-0.1); Basophils Percent Auto 1.4 % (0.2-1.2); Eosinophils Absolute Auto 0.4 K/mm3 (0-0.3); Eosinophils Percent Auto 5.1 % (0-4.4); Hematocrit 42.6 % (42.0-52.0); Hemoglobin 13.3 g/dL (14.0-18.0); Immature Granulocyte Absolute 0.01 K/mm3 (0.00-0.031); Immature Granulocyte Percent A 0.1 % (0-0.5); Lymphocytes Absolute Auto 1.27 K/mm3 (0.9-3.2); Lymphocytes Percent Auto 16.2 % (18.3-44.2); Mean Corpuscular HGB Conc 31.2 g/dl (32-36); Mean Corpuscular Hemoglobin 26.1 pg (26-34); Mean Corpuscular Volume 83.5 fl (80-100); Mean Platelet Volume 12.5 fl (7.4-10.4); Monocytes Absolute Auto 0.8 K/mm3 (0.1-0.6); Monocytes Percent Auto 9.9 % (2.6-8.5); Neutrophils Absolute Auto 5.3 K/mm3 (1.3-6.7); Neutrophils Percent Auto 67.3 % (45.5-73.1); Platelet Count Result 291 k/mm3 (150-375); Red Cell Distribution Width 14.4 % (11.5-14.5); White Blood Count 7.9 K/mm3 (4.5-10.0)
[2024-09-02 13:48] LABS: Add Urine Microscopic? NO; Appearance Urine Clear (Clear); Bilirubin Urine Negative (Negative); Blood Urine Negative (Negative); Color Urine Yellow (Yellow); Glucose Urine UA Negative (Negative); Ketones Urine Negative (Negative); Leukocyte Esterase Ur Negative LEU/UL (Negative); Nitrate Urine Negative (Negative); Protein Urine Negative (Negative); Specific Grav Ur 1.007 (1.001-1.035); Urobilinogen Urine 0.2 mg/dL (<2.0)
[2024-09-02 14:02] LABS: Alanine Aminotransferase 18 U/L (6-50); Albumin Level 4.7 g/dL (3.5-5.1); Alkaline Phosphatase 92 U/L (38-126); Anion Gap 7 mmol/L (4-12); Aspartate Amino Transferase 56 U/L (17-59); Bilirubin,Total 0.7 mg/dL (0.2-1.3); Blood Urea Nitrogen 14 mg/dL (9-20); Calcium 9.2 mg/dL (8.4-10.2); Carbon Dioxide 32 mmol/L (22-30); Chloride 101 mmol/L (98-107); Cholesterol 223 mg/dL (0-200); Estimated Glomerular Filt Rate > 60; Glucose 96 mg/dL (65-110); HDL Direct 48 mg/dL; Potassium 3.7 mmol/L (3.4-5.0); Sodium 140 mmol/L (137-145); Triglycerides 92 mg/dL (<150)
[2024-09-02 14:15] LABS: LDL Cholesterol Direct 129 mg/dL
[2024-09-02 14:15] LABS: Rapid Plasma Reagin Non-Reactive (NonReactive)
[2024-09-02 14:25] LABS: Prostate Specific Antigen 0.5 ng/mL (< OR = 4.0)
[2024-09-02 14:28] LABS: HIV 1/2 Ab P24 Ag Result Negative (Negative)
[2024-09-02 14:43] LABS: Hepatitis C Virus Antibody Negative (Negative)
[2024-09-02 15:17] LABS: Hemoglobin A1C 5.8 % (<5.7)
[2024-09-02 18:14] LABS: Chlamydia trachomatis NOT DETECTED (NOT DETECTE); Neisseria gonorrhoeae PCR NOT DETECTED (NOT DETECTE)
[2024-09-05 03:19] LABS: Herpes Simplex Type 1 DNA PCR Detected (Not Detected); Herpes Simplex Type 2 DNA PCR Not Detected (Not Detected)
== END 2024-09-02 08:57 | disposition home or self-care (01) ==
LOC: ANHGOSHLAB 08:57
PROVIDERS: PCP Internal Medicine; Visit Provider Nurse Practitioner
DX: R30.0 Dysuria (principal); D72.829 Elevated white blood cell count, unspecified; R73.03 Prediabetes; E87.6 Hypokalemia; I10 Essential (primary) hypertension; R36.1 Hematospermia
CPT/HCPCS: 36415; 80053; 80061; 81003; 83036; 84153; 85025; 86592; 86703; 86803; 87491; 87529; 87591; G0432